=== PATIENT | male | born 1950 | race American Indian/Alaskan Native ===

== ENCOUNTER 2017-07-10 16:53 | Emergency (ER) | payer MEDICARE, MEDICAID ==
--- NOTE | 2017-07-10 18:14 | Emergency Department Report ---
ED General Adult HPI - General Chief complaint: Medical Clearance Stated complaint: AMS Time Seen by Provider: 07/10/17 18:01 Source: patient, EMS Mode of arrival: Stretcher Limitations: No Limitations - History of Present Illness Initial comments: Patient is a 67-year-old male past medical history of malignant neoplasm of brain who presents with altered mental status. Patient was sent by his senior living due to having altered mental status. 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 Severity scale (0 -10): 0 - Related Data Allergies Allergy/AdvReac Type Severity Reaction Status Date / Time No Known Allergies Allergy Unverified 07/10/17 17:38 ED Review of Systems ROS: Stated complaint: AMS Other details as noted in HPI Comment: Unobtainable due to pts medical conditions ED Physical Exam - General Limitations: No Limitations General appearance: obtunded - Head Head exam: Present: atraumatic, normocephalic - Eye Eye exam: Present: normal appearance - ENT ENT exam: Present: mucous membranes moist - Neck Neck exam: Present: normal inspection - Respiratory Respiratory exam: Present: normal lung sounds bilaterally. Absent: respiratory distress - Cardiovascular Cardiovascular Exam: Absent: systolic murmur, diastolic murmur, rubs, gallop - GI/Abdominal GI/Abdominal exam: Present: soft, normal bowel sounds - Rectal Rectal exam: Present: deferred - Extremities Exam Extremities exam: Present: normal inspection - Back Exam Back exam: Present: normal inspection - Neurological Exam Neurological exam: Present: altered - Psychiatric Psychiatric exam: Present: other (confused) - Skin Skin exam: Present: warm, dry, intact, normal color. Absent: rash ED Course Vital Signs 07/10/17 07/10/17 17:29 17:30 Temperature 98.3 F Pulse Rate 96 H Respiratory 22 22 Rate Blood Pressure 159/72 [Left] O2 Sat by Pulse 100 100 Oximetry - Consultations Consultation #1: 07/10/17 19:[address] Ludwig neuro buttermaker continuous churn critical care. Patient will be an ER to ER transfer he will be transferred by ground due to his brain tumor. Patient is too confused and has no family members patient will be transferred for for continuing medical care. ED Medical Decision Making - Lab Data Result diagrams: 07/10/17 17:58 07/10/17 17:58 Lab Results 10/26/17 10/26/17 Range/Units 17:58 17:58 WBC 11.7 H (4.5-11.0) K/mm3 RBC 5.44 H (3.65-5.03) M/mm3 Hgb 15.7 H (11.8-15.2) gm/dl Hct 49.7 H (35.5-45.6) % MCV 91 (84-94) fl MCH 29 (28-32) pg MCHC 32 (32-34) % RDW 13.7 (13.2-15.2) % Plt Count 313 (140-440) K/mm3 Lymph % (Auto) 21.8 (13.4-35.0) % [place] % (Auto) 5.0 (0.0-7.3) % Eos % (Auto) 0.1 (0.0-4.3) % Baso % (Auto) 0.1 (0.0-1.8) % Lymph # 2.5 (1.2-5.4) K/mm3 [place] # 0.6 (0.0-0.8) K/mm3 Eos # 0.0 (0.0-0.4) K/mm3 Baso # 0.0 (0.0-0.1) K/mm3 Seg Neutrophils % 73.0 H (40.0-70.0) % Seg Neutrophils # 8.5 H (1.8-7.7) K/mm3 Sodium 140 (137-145) mmol/L Potassium 5.2 H (3.6-5.0) mmol/L Chloride 102.2 (98-107) mmol/L Carbon Dioxide 22 (22-30) mmol/L Anion Gap 21 mmol/L BUN 9 (9-20) mg/dL Creatinine 0.7 L (0.8-1.5) mg/dL Estimated GFR > 60 ml/min BUN/Creatinine Ratio 13 % Glucose 159 H (75-100) mg/dL Calcium 11.2 H (8.4-10.2) mg/dL Magnesium 2.20 (1.7-2.3) mg/dL Total Bilirubin 0.30 (0.1-1.2) mg/dL AST 77 H (5-40) units/L ALT 118 H (7-56) units/L Alkaline Phosphatase 96 (35-129) units/L Total Protein 7.8 (6.3-8.2) g/dL Albumin 4.2 (3.9-5) g/dL Albumin/Globulin Ratio 1.2 % - Radiology Data Radiology results: report reviewed, image reviewed CT head: Shows brain mass and frontal lobe previous surgery performed on this area mild mass effect and no intracranial bleed is seen. - Medical Decision Making Chief medical diagnosis: Brain tumor Differential medical diagnosis: Subdural hematoma, metabolic abnormality I will get CBC, CMP, EKG, CT head, ua and IV saline lock CT head is concerning for frontal brain tumor patient will need to be transferred for higher level of care. Discussed with neurosurgeon at [facility] patient will be an ER to ER transfer pertinent neuro critical care DrGali Ludwig. Discussed with patient the patient is currently confused. I will arrange for transfer due to his life-threatening tumor. Critical Care Time: Yes (35) Critical care time in (mins) excluding proc time.: 35 Critical care attestation.: If time is entered above; I have spent that time in minutes in the direct care of this critically ill patient, excluding procedure time. Critical care time spent a patient's bed side 5 minutes critical care time spent reviewing old records 15 minutes Critical care time spent reviewing imaging and laboratory findings 10 minutes Critical care time spent discussing with consultants 10 minutes Critical care time spent with patient's family 0 minutes ED Disposition Clinical Impression: Encephalopathy, Brain tumor Disposition: [id number]/TX-70 ANOTHER TYPE HLTHCARE Is pt being admited?: No Does the pt Need Aspirin: No Condition: Stable Referrals: PRIMARY CARE, [Primary Care Provider] - 3-5 Days
[2017-07-10 18:18] LABS: Basophils % (Auto) 0.1 % (0.0-1.8); Eosinophils % (Auto) 0.1 % (0.0-4.3); Hematocrit 49.7 % (35.5-45.6); Hemoglobin 15.7 gm/dl (11.8-15.2); Mean Corpuscular HGB Conc 32 % (32-34); Mean Corpuscular Hemoglobin 29 pg (28-32); Mean Corpuscular Volume 91 fl (84-94); Platelet Count 313 K/mm3 (140-440); Red Blood Count 5.44 M/mm3 (3.65-5.03); Red Cell Distribution Width 13.7 % (13.2-15.2); White Blood Count 11.7 K/mm3 (4.5-11.0)
[2017-07-10 18:35] LABS: Alanine Aminotransferase 118 units/L (7-56); Albumin 4.2 g/dL (3.9-5); Albumin/Globulin Ratio 1.2 %; Alkaline Phosphatase 96 units/L (35-129); Anion Gap 21 mmol/L; BUN/Creatinine Ratio 13; Blood Urea Nitrogen 9 mg/dL (9-20); Calcium 11.2 mg/dL (8.4-10.2); Carbon Dioxide 22 mmol/L (22-30); Chloride 102.2 mmol/L (98-107); Glucose 159 mg/dL (75-100); Potassium 5.2 mmol/L (3.6-5.0); Sodium 140 mmol/L (137-145); Total Protein 7.8 g/dL (6.3-8.2)
--- NOTE | 2017-07-10 18:47 | Cat Scan Report ---
FINAL REPORT PROCEDURE: CT HEAD/BRAIN WO CON TECHNIQUE: Computerized tomography of the head was performed without contrast material. HISTORY: AMS COMPARISON: No prior studies are available for comparison. FINDINGS: Patient has had prior frontal craniotomy. Visualized portions of paranasal sinuses and mastoid air cells are clear. There is likely an infiltrating mass in the right frontal lobe that may cross the midline, via the corpus callosum, into the left frontal lobe. Mild encephalomalacia is seen in the right frontal lobe, also. Areas of vasogenic edema and/or gliosis are likely present. Cerebral ventricles are normal in size. No midline shift is seen. No acute intracranial hemorrhage is seen. IMPRESSION: Probable space-occupying mass is identified in the right frontal lobe and extending into the left frontal lobe. GBM or other glial cell tumor could cause this appearance. Little mass effect is seen. Correlation with MRI may be useful. There is evidence of prior surgery in this region, also.
[2017-07-10 21:56] VITALS: BP 148/69
== END 2017-07-10 20:40 | disposition other institution (70) ==
LOC: ED 16:53
DX: G93.40 Encephalopathy, unspecified (principal); C71.9 Malignant neoplasm of brain, unspecified
CPT/HCPCS: 36415; 70450; 80053; 82140; 83735; 85025

== ENCOUNTER 2017-09-10 05:00 | Inpatient (IN) | payer MEDICARE, MEDICAID ==
[2017-09-10] MEDS ORDERED: TYLENOL PR ONE (05:04)
[2017-09-10] MEDS ORDERED: NACL 0.9% 500 ML 500 ML IV ONE (05:11)
[2017-09-10] MEDS ORDERED: VANCOMYCIN VIAL IV ONE (05:16)
[2017-09-10] MEDS ORDERED: NACL 0.9% 1000 ML 2,000 ML IV ONE (05:16)
--- NOTE | 2017-09-10 05:26 | Event Note ---
Date: 09/10/17 Patient presents with acute febrile illness and delirium. Has DO NOT RESUSCITATE, DO NOT INTUBATE from 2015. Also has history of malignant brain neoplasm, history is otherwise limited. Patient will be started empirically on a sepsis pathway. Patient will be treated empirically with IV fluids, vancomycin. Enclosed paperwork indicates allergy to acetaminophen, aspirin, but does not further specify. Laboratory studies, antibiotics, blood cultures all pending, x-ray of the chest is pending. Right-sided external jugular 18-gauge IV placed by myself with 1 attempt with no difficulty.
[2017-09-10] MEDS ORDERED: VANCOMYCIN 2,000 MG in NACL 0.9% 500 ML 500 ML IV ONE (05:30)
[2017-09-10 05:34] LABS: Hematocrit 44.1 % (35.5-45.6); Mean Corpuscular HGB Conc 34 % (32-34); Mean Corpuscular Hemoglobin 30 pg (28-32); Mean Corpuscular Volume 89 fl (84-94); Platelet Count 173 K/mm3 (140-440); Red Blood Count 4.98 M/mm3 (3.65-5.03); Red Cell Distribution Width 13.8 % (13.2-15.2)
[2017-09-10 05:52] LABS: INR 1.12 (0.87-1.13)
[2017-09-10 05:55] LABS: Alanine Aminotransferase 49 units/L (7-56); Albumin 3.8 g/dL (3.9-5); BUN/Creatinine Ratio 8; Blood Urea Nitrogen 9 mg/dL (9-20); Calcium 10.5 mg/dL (8.4-10.2); Hemolysis Index 14
[2017-09-10 05:58] LABS: Bacteria,Urine 1+ /HPF (Negative); Bilirubin,Urine NEG (Negative); Blood,Urine NEG (Negative); Color,Urine Yellow (Yellow); Mucus,Urine FEW /HPF; Nitrite,Urine NEG (Negative)
[2017-09-10] MEDS ORDERED: VANCOMYCIN PHARMACY TO DOSE IV SCH (06:00)
--- NOTE | 2017-09-10 06:03 | XRay Report ---
FINAL REPORT PROCEDURE: XR CHEST 1V AP TECHNIQUE: Chest radiograph anteroposterior view. CPT 18171 HISTORY: resp distress COMPARISON: No prior studies are available for comparison. FINDINGS: Heart: Normal. Mediastinum/Vessels: Normal. Lungs/Pleural space: Lungs are clear and expanded. There are no infiltrates, effusions or pneumothoraces.. Bony thorax: No acute osseous abnormality. There is scoliosis with convexity to the right. Life support devices: None. IMPRESSION: No acute cardiopulmonary abnormality.
--- NOTE | 2017-09-10 06:52 | Emergency Department Report ---
ED Fever HPI - General Chief Complaint: Altered Mental Status Stated Complaint: AMS Time Seen by Provider: 09/10/17 05:15 Source: detention records Exam Limitations: clinical condition - History of Present Illness Initial Comments: 67-year-old male with a past medical history of asthma, dementia, GERD, hypertension, and malignant neoplasm of the brain presents to the hospital with altered mental status and fever for [facility] home. Symptoms started at 10 PM last night. Patient denies any pain currently. Arouses to voice but falls asleep quickly. Oriented to self at this time. 2015 DO NOT RESUSCITATE order on chart. Patient had a right IJ place, normal saline, and vancomycin initiated in the ED for probable bilateral leg cellulitis. ED Review of Systems ROS: Stated complaint: AMS Other details as noted in HPI Comment: Unobtainable due to pts medical conditions (demented, lethargic) ED Past Medical Hx - Past Medical History Previous Medical History?: Yes Hx Hypertension: Yes Hx GERD: Yes Hx Asthma: Yes Hx Dementia: Yes Additional medical history: malignant neoplasm of brain ED Physical Exam - General Limitations: Altered Mental Status - Other Other exam information: General: Arousable but lethargic Head exam: Atraumatic, normocephalic Eyes exam: Normal appearance ENT: Moist mucous membrane Neck exam: Normal inspection, no meningismus Respiratory exam: Clear to auscultation bilateral, no wheezes, rales, crackles. 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 ED Course Vital Signs 09/10/17 09/10/17 09/10/17 05:04 05:18 05:31 Temperature 104.9 F H Pulse Rate 114 H Respiratory 32 H 32 H Rate Blood Pressure 164/83 O2 Sat by Pulse 94 94 Oximetry ED Medical Decision Making - Lab Data Result diagrams: 09/10/17 05:24 09/10/17 05:24 Lab Results 09/10/17 09/10/17 09/10/17 Range/Units 05:24 05:24 05:24 WBC 10.1 (4.5-11.0) K/mm3 RBC 4.98 (3.65-5.03) M/mm3 Hgb 15.0 (11.8-15.2) gm/dl Hct 44.1 (35.5-45.6) % MCV 89 (84-94) fl MCH 30 (28-32) pg MCHC 34 (32-34) % RDW 13.8 (13.2-15.2) % Plt Count 173 (140-440) K/mm3 [place] % (Auto) City [employer] PT 15.0 H (12.2-14.9) Sec. INR 1.12 (0.87-1.13) VBG pH (7.320-7.420) Sodium 142 (137-145) mmol/L Potassium 4.4 (3.6-5.0) mmol/L Chloride 101.2 (98-107) mmol/L Carbon Dioxide 23 (22-30) mmol/L Anion Gap 22 mmol/L BUN 9 (9-20) mg/dL Creatinine 1.1 (0.8-1.5) mg/dL Estimated GFR > 60 ml/min BUN/Creatinine Ratio 8 % Glucose 111 H (75-100) mg/dL Lactic Acid (0.7-2.0) mmol/L Calcium 10.5 H (8.4-10.2) mg/dL Total Bilirubin 0.30 (0.1-1.2) mg/dL AST 49 H (5-40) units/L ALT 49 (7-56) units/L Alkaline Phosphatase 89 (35-129) units/L Total Protein 7.1 (6.3-8.2) g/dL Albumin 3.8 L (3.9-5) g/dL Albumin/Globulin Ratio 1.2 % Urine Color (Yellow) Urine Turbidity (Clear) Urine pH (5.0-7.0) Ur Specific [place] (1.003-1.030) Urine Protein (Negative) mg/dL Urine Glucose (UA) (Negative) mg/dL Urine Ketones (Negative) mg/dL Urine Blood (Negative) Urine Nitrite (Negative) Urine Bilirubin (Negative) Urine Urobilinogen (<2.0) mg/dL Ur Leukocyte Esterase (Negative) Urine WBC (Auto) (0.0-6.0) /HPF Urine RBC (Auto) (0.0-6.0) /HPF Urine Bacteria (Auto) (Negative) /HPF Urine Mucus /HPF 09/10/17 09/10/17 09/10/17 Range/Units 05:24 05:24 05:28 WBC (4.5-11.0) K/mm3 RBC (3.65-5.03) M/mm3 Hgb (11.8-15.2) gm/dl Hct (35.5-45.6) % MCV (84-94) fl MCH (28-32) pg MCHC (32-34) % RDW (13.2-15.2) % Plt Count (140-440) K/mm3 [place] % (Auto) PT (12.2-14.9) Sec. INR (0.87-1.13) VBG pH 7.355 (7.320-7.420) Sodium (137-145) mmol/L Potassium (3.6-5.0) mmol/L Chloride (98-107) mmol/L Carbon Dioxide (22-30) mmol/L Anion Gap mmol/L BUN (9-20) mg/dL Creatinine (0.8-1.5) mg/dL Estimated GFR ml/min BUN/Creatinine Ratio % Glucose (75-100) mg/dL Lactic Acid 2.10 H* (0.7-2.0) mmol/L Calcium (8.4-10.2) mg/dL Total Bilirubin (0.1-1.2) mg/dL AST (5-40) units/L ALT (7-56) units/L Alkaline Phosphatase (35-129) units/L Total Protein (6.3-8.2) g/dL Albumin (3.9-5) g/dL Albumin/Globulin Ratio % Urine Color Yellow (Yellow) Urine Turbidity Clear (Clear) Urine pH 5.0 (5.0-7.0) Ur Specific [place] 1.021 (1.003-1.030) Urine Protein 30 mg/dl (Negative) mg/dL Urine Glucose (UA) Neg (Negative) mg/dL Urine Ketones 20 (Negative) mg/dL Urine Blood Neg (Negative) Urine Nitrite Neg (Negative) Urine Bilirubin Neg (Negative) Urine Urobilinogen 2.0 (<2.0) mg/dL Ur Leukocyte Esterase Neg (Negative) Urine WBC (Auto) 1.0 (0.0-6.0) /HPF Urine RBC (Auto) 2.0 (0.0-6.0) /HPF Urine Bacteria (Auto) 1+ (Negative) /HPF Urine Mucus Few /HPF - EKG Data -: EKG Interpreted by Mo EKG shows normal: sinus rhythm, axis (74), QRS complexes (85), ST-T waves (lat t inv) Rate: tachycardia (108) - EKG Data When compared to previous EKG there are: previous EKG unavailable - Radiology Data Radiology results: report reviewed (chest x-ray: No acute findings read by radiologist) read by radiologist ct head: no signficant change in the frontal lobe edema and assumed underlying mass since 07/10/2017. - Medical Decision Making Plan to admit this to the hospital for sepsis treatment. IV fluids and vancomycin initiated in the ED. Patient has a 2015 DO NOT RESUSCITATE on the chart. Hospitalist informed. No signs of septic shock at this time - Differential Diagnosis cellulitis, sepsis, UTI, pneumonia Critical Care Time: No Critical care attestation.: If time is entered above; I have spent that time in minutes in the direct care of this critically ill patient, excluding procedure time. ED Disposition Clinical Impression: Sepsis, Bilateral cellulitis of lower leg, Dementia, Brain neoplasm, HTN ( hypertension) Disposition: -09 OP ADMIT IP TO THIS HOSP Is pt being admited?: Yes Condition: Stable Time of Disposition: 06:53 (Hospitalist/sabinoet)
--- NOTE | 2017-09-10 07:56 | Cat Scan Report ---
CT HEAD WITHOUT CONTRAST: HISTORY: Fever, altered mental status, history of brain tumor. TECHNIQUE: Sequential 2.5mm CT images. COMPARISON: 07/10/17. FINDINGS: There is a large area of edema in the anterior right frontal lobe and medial left frontal lobe measuring up to 6.6 x 5.7 cm in axial dimensions. There is evidence for previous frontal craniotomy changes and encephalomalacia in both frontal lobes most consistent with surgical changes. There is mild mass effect on the anterior corpus callosum and right to left midline shift measuring proximally 5 mm at the level of the frontal horns. All these findings are unchanged. There is no evidence for hemorrhage, new area of edema in or large area of acute ischemia on noncontrast CT. The remaining brain parenchyma is within normal limits for this patient's age. Ventricular size is stable and within normal limits. IMPRESSION: No significant change in the frontal lobe edema and assumed underlying mass since 06/2617. Please see above. If further evaluation is needed, MR brain with contrast is recommended.
[2017-09-10 08:04] LABS: Band Neutrophils # (Manual) 0.3 K/mm3; Basophils % (Manual) 0 % (0.0-1.8); Monocytes % (Manual) 15 % (0.0-7.3); Total Cells Counted 100
[2017-09-10 08:05] LABS: Anisocytosis Few
[2017-09-10] MEDS ORDERED: TYLENOL PO PRN (08:18)
[2017-09-10] MEDS ORDERED: MORPHINE IV PRN (08:18)
[2017-09-10] MEDS ORDERED: ULTRAM PO PRN (08:27)
--- NOTE | 2017-09-10 08:29 | History and Physical Report ---
<ROXANNE RINCON - Last Filed: 09/10/17 14:42> History of Present Illness Date of examination: 09/10/17 Date of admission: 09/10/2017 Chief complaint: Fever History of present illness: Patient is a 67 years old male with a past medical history of asthma, dementia , GERD, hypertension, and malignant neoplasm of the brain presents to the hospital with altered mental status and fever for [facility]. Patient Altered mental status therefore unable to obtain detail history. Per ER physician and charts patient symptoms started at 10 PM last night. No reports of shortness of breath, chest pain, seizure, trauma, loss of bowel or bladder continence or recent ill contacts. Patient has DNR ordered on chart since 2014. Past History Past Medical History: GERD, hypertension ( ), other (malignant neoplasm of the brain and dementia.) Past Surgical History: Other (unable to obtain due to patients mental status ) Social history: denies: smoking Family history: other (unable to obtain due to patients mental status ) Medications and Allergies Allergies Allergy/AdvReac Type Severity Reaction Status Date / Time acetaminophen [From Tylenol] Allergy Unknown Verified 09/10/17 05:27 aspirin Allergy Unknown Verified 09/10/17 05:27 mannitol [From Zometa] Allergy Unknown Verified 09/10/17 05:27 propoxyphene Allergy Unknown Verified 09/10/17 05:27 water for injection,sterile Allergy Unknown Verified 09/10/17 05:27 [From Zometa] zoledronic acid [From Zometa] Allergy Unknown Verified 09/10/17 05:27 Home Medications Medication Instructions Recorded Confirmed Last Taken Type Albuterol Sulfate [Albuterol 0.63% 0.63 mg IH Q4H PRN 09/10/17 09/10/17 Unknown History NEBS] Ascorbic Acid [Vitamin C with Heather 500 mg PO DAILY 09/10/17 09/10/17 Unknown History Hips] Beclomethasone Dipropionate [Qvar] 2 puff IH BID 09/10/17 09/10/17 Unknown History Dexamethasone [Decadron] 4 mg PO QDAY 09/10/17 09/10/17 Unknown History Docusate Sodium [Colace] 200 mg PO BID PRN 09/10/17 09/10/17 Unknown History Ibuprofen [Motrin] 600 mg PO Q8H PRN 09/10/17 09/10/17 Unknown History Ipratropium/Albuterol Sulfate 1 neb IH Q4HR PRN 09/10/17 09/10/17 Unknown History [DUONEB *Not for PRN Use*] Linagliptin [Tradjenta] 5 mg PO QDAY 09/10/17 09/10/17 Unknown History Mag Hydrox/Aluminum Hyd/Simeth 30 ml PO Q4H PRN 09/10/17 09/10/17 Unknown History [Alum-Mag Hydroxide-Simeth Liq] Magnesium Hydroxide [Milk of 30 ml PO Q12H PRN 09/10/17 09/10/17 Unknown History Magnesia] Montelukast [Singulair] 10 mg PO DAILY 09/10/17 09/10/17 Unknown History Omeprazole 20 mg PO QDAY 09/10/17 09/10/17 Unknown History Polyethylene Glycol 1450 17 gm PO DAILY PRN 09/10/17 09/10/17 Unknown History Sennosides/Docusate [Senokot S] 2 tab PO BID PRN 09/10/17 09/10/17 Unknown History Tamsulosin [Flomax] 0.4 mg PO HS 09/10/17 09/10/17 Unknown History Thiamine [Vitamin B-1] 100 mg PO QDAY 09/10/17 09/10/17 Unknown History Zolpidem [Ambien] 5 mg PO QHS PRN 09/10/17 09/10/17 Unknown History guaiFENesin [Guaifenesin] 30 ml PO Q4H PRN 09/10/17 09/10/17 Unknown History levETIRAcetam [Levetiracetam] 500 mg PO BID 09/10/17 09/10/17 Unknown History Active Meds: Active Medications Bisacodyl (Dulcolax) 10 mg TX QDAY PRN PRN Reason: Constipation unrelieved by MOM Enoxaparin Sodium (Lovenox) 40 mg SUB-Q QDAY RUCHI Sodium Chloride (Nacl 0.9% 1000 Ml) 1,000 mls @ 100 mls/hr IV DIRECT RUCHI Morphine Sulfate (Morphine) 2 mg IV Q4H PRN PRN Reason: Pain, Moderate (4-6) Tramadol HCl (Ultram) 50 mg PO Q4H PRN PRN Reason: Fever Vancomycin HCl (Vancomycin Pharmacy To Dose) 1 each IV PKCONSULT RUCHI PRN Reason: Protocol Review of Systems ROS unobtainable: due to mental status (unable to obtain due to patients mental status ) Exam - Constitutional Vitals: Temp Pulse Resp BP Pulse Ox 104.5 F H 109 H 26 H 120/46 94 09/10/17 07:15 09/10/17 08:00 09/10/17 08:00 09/10/17 08:00 09/10/17 08:00 General appearance: Present: no acute distress, other (Altered mental status ) - EENT Eyes: Present: PERRL ENT: hearing intact - Neck Neck: Present: supple - Respiratory Respiratory effort: normal Respiratory: bilateral: CTA - Cardiovascular Rhythm: regular Heart Sounds: Present: S1 & S2 - Extremities Extremity abnormal: other (Bilateral lower leg erythema and warmth) - Abdominal General gastrointestinal: Present: soft, non-tender Male genitourinary: Present: deferred - Rectal Rectal Exam: deferred - Integumentary Integumentary: Present: clear (Bilateral lower leg erythema and warmth), warm, dry - Musculoskeletal Musculoskeletal: strength equal bilaterally - Psychiatric Psychiatric: other (Impaired judgment ) - Neurologic Neurologic: CNII-XII intact - Allied Health Allied health notes reviewed: nursing Results - Labs CBC & Chem 7: 09/10/17 05:24 09/10/17 05:24 Labs: Laboratory Last Values WBC 10.1 K/mm3 (4.5-11.0) 09/10/17 05:24 RBC 4.98 M/mm3 (3.65-5.03) 09/10/17 05:24 Hgb 15.0 gm/dl (11.8-15.2) 09/10/17 05:24 Hct 44.1 % (35.5-45.6) 09/10/17 05:24 MCV 89 fl (84-94) 09/10/17 05:24 MCH 30 pg (28-32) 09/10/17 05:24 MCHC 34 % (32-34) 09/10/17 05:24 RDW 13.8 % (13.2-15.2) 09/10/17 05:24 Plt Count 173 K/mm3 (140-440) 09/10/17 05:24 [place] % (Auto) Cask Maker 09/10/17 05:24 Add Manual Diff Complete 12/27/17 05:24 Total Counted 100 09/10/17 05:24 Seg Neuts % (Manual) 66 % (40.0-70.0) 09/10/17 05:24 Band Neutrophils % 3.0 % 09/10/17 05:24 Lymphocytes % (Manual) 15.0 % (13.4-35.0) 09/10/17 05:24 Reactive Lymphs % (Man) 0 % 09/10/17 05:24 Monocytes % (Manual) 15 % (0.0-7.3) H 09/10/17 05:24 Eosinophils % (Manual) 1.0 % (0.0-4.3) 09/10/17 05:24 Basophils % (Manual) 0 % (0.0-1.8) 09/10/17 05:24 Metamyelocytes % 0 % 09/10/17 05:24 Myelocytes % 0 % 09/10/17 05:24 Promyelocytes % 0 % 09/10/17 05:24 Blast Cells % 0 % 09/10/17 05:24 Nucleated RBC % Not Reportable 09/10/17 05:24 Seg Neutrophils # Man 6.6 K/mm3 (1.8-7.7) 09/10/17 05:24 Band Neutrophils # 0.3 K/mm3 09/10/17 05:24 Lymphocytes # (Manual) 1.5 K/mm3 (1.2-5.4) 09/10/17 05:24 Abs React Lymphs (Man) 0.0 K/mm3 09/10/17 05:24 Monocytes # (Manual) 1.5 K/mm3 (0.0-0.8) H 09/10/17 05:24 Eosinophils # (Manual) 0.1 K/mm3 (0.0-0.4) 09/10/17 05:24 Basophils # (Manual) 0.0 K/mm3 (0.0-0.1) 09/10/17 05:24 Metamyelocytes # 0.0 K/mm3 09/10/17 05:24 Myelocytes # 0.0 K/mm3 09/10/17 05:24 Promyelocytes # 0.0 K/mm3 09/10/17 05:24 Blast Cells # 0.0 K/mm3 09/10/17 05:24 WBC Morphology Not Reportable 09/10/17 05:24 Hypersegmented Neuts Not Reportable 09/10/17 05:24 Hyposegmented Neuts Not Reportable 09/10/17 05:24 Hypogranular Neuts Not Reportable 09/10/17 05:24 Smudge Cells Not Reportable 09/10/17 05:24 Toxic Granulation Not Reportable 09/10/17 05:24 Toxic Vacuolation Not Reportable 09/10/17 05:24 Dohle Bodies Not Reportable 09/10/17 05:24 Pelger-Huet Anomaly Not Reportable 09/10/17 05:24 Dev Rods Not Reportable 09/10/17 05:24 Platelet Estimate Not Reportable 09/10/17 05:24 Clumped Platelets Not Reportable 09/10/17 05:24 Plt Clumps, EDTA Not Reportable 09/10/17 05:24 Large Platelets Not Reportable 09/10/17 05:24 Giant Platelets Not Reportable 09/10/17 05:24 Platelet Satelliting Not Reportable 09/10/17 05:24 Plt Morphology Comment Not Reportable 09/10/17 05:24 RBC Morphology Not Reportable 09/10/17 05:24 Dimorphic RBCs Not Reportable 09/10/17 05:24 Polychromasia Not Reportable 09/10/17 05:24 Hypochromasia Not Reportable 09/10/17 05:24 Poikilocytosis Not Reportable 09/10/17 05:24 Anisocytosis Few 09/10/17 05:24 Microcytosis Not Reportable 09/10/17 05:24 Macrocytosis Not Reportable 09/10/17 05:24 Spherocytes Not Reportable 09/10/17 05:24 Pappenheimer Bodies Not Reportable 09/10/17 05:24 Sickle Cells Not Reportable 09/10/17 05:24 Target Cells Not Reportable 09/10/17 05:24 Tear Drop Cells Not Reportable 09/10/17 05:24 Ovalocytes Not Reportable 09/10/17 05:24 Helmet Cells Not Reportable 09/10/17 05:24 [place] Bodies Not Reportable 09/10/17 05:24 [place] Rings Not Reportable 09/10/17 05:24 Fox Cells Not Reportable 09/10/17 05:24 Bite Cells Not Reportable 09/10/17 05:24 Crenated Cell Not Reportable 09/10/17 05:24 Elliptocytes Not Reportable 09/10/17 05:24 Acanthocytes (Spur) Not Reportable 09/10/17 05:24 Rouleaux Not Reportable 09/10/17 05:24 Hemoglobin C Crystals Not Reportable 09/10/17 05:24 Schistocytes Not Reportable 09/10/17 05:24 Malaria parasites Not Reportable 09/10/17 05:24 Max Bodies Not Reportable 09/10/17 05:24 Hem Pathologist Commnt No 09/10/17 05:24 PT 15.0 Sec. (12.2-14.9) H 09/10/17 05:24 INR 1.12 (0.87-1.13) 09/10/17 05:24 VBG pH 7.355 (7.320-7.420) 09/10/17 05:24 Sodium 142 mmol/L (137-145) 09/10/17 05:24 Potassium 4.4 mmol/L (3.6-5.0) 09/10/17 05:24 Chloride 101.2 mmol/L (98-107) 09/10/17 05:24 Carbon Dioxide 23 mmol/L (22-30) 09/10/17 05:24 Anion Gap 22 mmol/L 09/10/17 05:24 BUN 9 mg/dL (9-20) 09/10/17 05:24 Creatinine 1.1 mg/dL (0.8-1.5) 09/10/17 05:24 Estimated GFR > 60 ml/min 09/10/17 05:24 BUN/Creatinine Ratio 8 % 09/10/17 05:24 Glucose 111 mg/dL (75-100) H 09/10/17 05:24 Lactic Acid 2.10 mmol/L (0.7-2.0) H* 09/10/17 05:24 Calcium 10.5 mg/dL (8.4-10.2) H 09/10/17 05:24 Total Bilirubin 0.30 mg/dL (0.1-1.2) 09/10/17 05:24 AST 49 units/L (5-40) H 09/10/17 05:24 ALT 49 units/L (7-56) 09/10/17 05:24 Alkaline Phosphatase 89 units/L (35-129) 09/10/17 05:24 Total Protein 7.1 g/dL (6.3-8.2) 09/10/17 05:24 Albumin 3.8 g/dL (3.9-5) L 09/10/17 05:24 Albumin/Globulin Ratio 1.2 % 09/10/17 05:24 Urine Color Yellow (Yellow) 09/10/17 05:28 Urine Turbidity Clear (Clear) 09/10/17 05:28 Urine pH 5.0 (5.0-7.0) 09/10/17 05:28 Ur Specific [place] 1.021 (1.003-1.030) 09/10/17 05:28 Urine Protein 30 mg/dl mg/dL (Negative) 09/10/17 05:28 Urine Glucose (UA) Neg mg/dL (Negative) 09/10/17 05:28 Urine Ketones 20 mg/dL (Negative) 09/10/17 05:28 Urine Blood Neg (Negative) 09/10/17 05:28 Urine Nitrite Neg (Negative) 09/10/17 05:28 Urine Bilirubin Neg (Negative) 09/10/17 05:28 Urine Urobilinogen 2.0 mg/dL (<2.0) 09/10/17 05:28 Ur Leukocyte Esterase Neg (Negative) 09/10/17 05:28 Urine WBC (Auto) 1.0 /HPF (0.0-6.0) 09/10/17 05:28 Urine RBC (Auto) 2.0 /HPF (0.0-6.0) 09/10/17 05:28 Urine Bacteria (Auto) 1+ /HPF (Negative) 09/10/17 05:28 Urine Mucus Few /HPF 09/10/17 05:28 - Imaging and Cardiology Chest x-ray: image reviewed (Unremarkable ) Assessment and Plan Assessment and plan: Patient is a 67 years old male with a past medical history of asthma, dementia, GERD, hypertension, and malignant neoplasm of the brain presents to the hospital with altered mental status and fever for [facility]. Sepsis Blood cultures collected prior to antibiotic Follow blood cultures Aggressive fluid fluid resuscitation Initiated with IV vancomycin and Zosyn Bilateral lower extremity cellulitis Bilateral lower leg erythema and warmth Started IV vancomycin and Zosyn ID consult Lactic acidosis Resolved Secondary to sepsis Tobacco abuse Smoking cessation counseling done. Patient strongly advised to quit. Malignant neoplasm of the brain Patient is on hospice Malnutrition Nutrition consulted DVT prophylaxis Lovenox Patient is DNR Advance Directives: Yes VTE prophylaxis?: Chemical Contraindication Mechanical VTE Prophylaxis: Treatment Not Indicated Plan of care discussed with patient/family: Yes <ALEXANDR RIDER R - Last Filed: 09/10/17 15:17> History of Present Illness Date of admission: 09/10/17 08:18 Medications and Allergies Active Meds: Active Medications Acetaminophen (Tylenol) 650 mg TX Q6H PRN PRN Reason: Pain, Mild (1-3) Last Admin: 09/10/17 14:58 Dose: 650 mg Al Hydrox/Mg Hydrox/Simethicone (Alum-Mag Hydrox-Simeth [id number]/5ml) 30 ml PO Q4H PRN PRN Reason: Indigestion Albuterol (Proventil) 2.5 mg IH Q4HRT PRN PRN Reason: Shortness Of Breath Ascorbic Acid (Vitamin C) 500 mg PO DAILY RUCHI Bisacodyl (Dulcolax) 10 mg TX QDAY PRN PRN Reason: Constipation unrelieved by MOM Dexamethasone (Decadron) 4 mg PO QDAY RUCHI Docusate Sodium (Colace) 200 mg PO BID PRN PRN Reason: Constipation Enoxaparin Sodium (Lovenox) 40 mg SUB-Q QDAY [facility] Last Admin: 09/10/17 10:58 Dose: 40 mg Guaifenesin (Robitussin) 400 mg PO Q4H PRN PRN Reason: Cough Sodium Chloride (Nacl 0.9% 1000 Ml) 1,000 mls @ 100 mls/hr IV DIRECT RUCHI Piperacillin Sod/Tazobactam Sod (Zosyn/Ns 4.5gm/100ml) 4.5 gm in 100 mls @ 200 mls/hr IV Q6HR RUCHI PRN Reason: Protocol Last Admin: 09/10/17 12:33 Dose: 200 mls/hr Vancomycin HCl 1,250 mg/ (Sodium Chloride) 262.5 mls @ 166.667 mls/hr IV Q12HR RUCHI Ibuprofen (Motrin) 600 mg PO Q8H PRN PRN Reason: Pain Levetiracetam (Keppra) 500 mg PO BID RUCHI Magnesium Hydroxide (Milk Of Magnesia) 30 ml PO Q12H PRN PRN Reason: Constipation Miscellaneous Medication (Beclomethasone Dipropionate [Qvar]) 2 puff IH BID RUCHI Montelukast Sodium (Singulair) 10 mg PO DAILY RUCHI Morphine Sulfate (Morphine) 2 mg IV Q4H PRN PRN Reason: Pain, Moderate (4-6) Pantoprazole Sodium (Protonix) 20 mg PO QDAY RUCHI Polyethylene Glycol (Miralax 3350) 17 gm PO QDAY PRN PRN Reason: Constipation Senna/Docusate Sodium (Senokot S) 2 tab PO BID PRN PRN Reason: Constipation Tamsulosin HCl (Flomax) 0.4 mg PO HS RUCHI Thiamine HCl (Vitamin B-1) 100 mg PO QDAY RUCHI Tramadol HCl (Ultram) 50 mg PO Q4H PRN PRN Reason: Fever Vancomycin HCl (Vancomycin Pharmacy To Dose) 1 each IV PKCONSULT RUCHI PRN Reason: Protocol Zolpidem Tartrate (Ambien) 5 mg PO QHS PRN PRN Reason: Insomnia Exam - Constitutional Vitals: Temp Pulse Resp BP Pulse Ox 103.4 F H 98 H 31 H 98/41 91 09/10/17 10:36 09/10/17 11:16 09/10/17 11:16 09/10/17 11:16 09/10/17 11:16 Results - Labs CBC & Chem 7: 09/10/17 05:24 09/10/17 05:24 Labs: Laboratory Last Values WBC 10.1 K/mm3 (4.5-11.0) 09/10/17 05:24 RBC 4.98 M/mm3 (3.65-5.03) 09/10/17 05:24 Hgb 15.0 gm/dl (11.8-15.2) 09/10/17 05:24 Hct 44.1 % (35.5-45.6) 09/10/17 05:24 MCV 89 fl (84-94) 09/10/17 05:24 MCH 30 pg (28-32) 09/10/17 05:24 MCHC 34 % (32-34) 09/10/17 05:24 RDW 13.8 % (13.2-15.2) 09/10/17 05:24 Plt Count 173 K/mm3 (140-440) 09/10/17 05:24 [place] % (Auto) Cask Maker 09/10/17 05:24 Add Manual Diff Complete 09/10/17 05:24 Total Counted 100 09/10/17 05:24 Seg Neuts % (Manual) 66 % (40.0-70.0) 09/10/17 05:24 Band Neutrophils % 3.0 % 09/10/17 05:24 Lymphocytes % (Manual) 15.0 % (13.4-35.0) 09/10/17 05:24 Reactive Lymphs % (Man) 0 % 09/10/17 05:24 Monocytes % (Manual) 15 % (0.0-7.3) H 09/10/17 05:24 Eosinophils % (Manual) 1.0 % (0.0-4.3) 09/10/17 05:24 Basophils % (Manual) 0 % (0.0-1.8) 09/10/17 05:24 Metamyelocytes % 0 % 09/10/17 05:24 Myelocytes % 0 % 09/10/17 05:24 Promyelocytes % 0 % 09/10/17 05:24 Blast Cells % 0 % 09/10/17 05:24 Nucleated RBC % Not Reportable 09/10/17 05:24 Seg Neutrophils # Man 6.6 K/mm3 (1.8-7.7) 09/10/17 05:24 Band Neutrophils # 0.3 K/mm3 09/10/17 05:24 Lymphocytes # (Manual) 1.5 K/mm3 (1.2-5.4) 09/10/17 05:24 Abs React Lymphs (Man) 0.0 K/mm3 09/10/17 05:24 Monocytes # (Manual) 1.5 K/mm3 (0.0-0.8) H 09/10/17 05:24 Eosinophils # (Manual) 0.1 K/mm3 (0.0-0.4) 09/10/17 05:24 Basophils # (Manual) 0.0 K/mm3 (0.0-0.1) 09/10/17 05:24 Metamyelocytes # 0.0 K/mm3 09/10/17 05:24 Myelocytes # 0.0 K/mm3 09/10/17 05:24 Promyelocytes # 0.0 K/mm3 09/10/17 05:24 Blast Cells # 0.0 K/mm3 09/10/17 05:24 WBC Morphology Not Reportable 09/10/17 05:24 Hypersegmented Neuts Not Reportable 09/10/17 05:24 Hyposegmented Neuts Not Reportable 09/10/17 05:24 Hypogranular Neuts Not Reportable 09/10/17 05:24 Smudge Cells Not Reportable 09/10/17 05:24 Toxic Granulation Not Reportable 09/10/17 05:24 Toxic Vacuolation Not Reportable 09/10/17 05:24 Dohle Bodies Not Reportable 09/10/17 05:24 Pelger-Huet Anomaly Not Reportable 09/10/17 05:24 Dev Rods Not Reportable 09/10/17 05:24 Platelet Estimate Not Reportable 09/10/17 05:24 Clumped Platelets Not Reportable 09/10/17 05:24 Plt Clumps, EDTA Not Reportable 09/10/17 05:24 Large Platelets Not Reportable 09/10/17 05:24 Giant Platelets Not Reportable 09/10/17 05:24 Platelet Satelliting Not Reportable 09/10/17 05:24 Plt Morphology Comment Not Reportable 09/10/17 05:24 RBC Morphology Not Reportable 09/10/17 05:24 Dimorphic RBCs Not Reportable 09/10/17 05:24 Polychromasia Not Reportable 09/10/17 05:24 Hypochromasia Not Reportable 09/10/17 05:24 Poikilocytosis Not Reportable 09/10/17 05:24 Anisocytosis Few 09/10/17 05:24 Microcytosis Not Reportable 09/10/17 05:24 Macrocytosis Not Reportable 09/10/17 05:24 Spherocytes Not Reportable 09/10/17 05:24 Pappenheimer Bodies Not Reportable 09/10/17 05:24 Sickle Cells Not Reportable 09/10/17 05:24 Target Cells Not Reportable 09/10/17 05:24 Tear Drop Cells Not Reportable 09/10/17 05:24 Ovalocytes Not Reportable 09/10/17 05:24 Helmet Cells Not Reportable 09/10/17 05:24 [place] Bodies Not Reportable 09/10/17 05:24 Tolley Rings Not Reportable 09/10/17 05:24 Fox Cells Not Reportable 09/10/17 05:24 Bite Cells Not Reportable 09/10/17 05:24 Crenated Cell Not Reportable 09/10/17 05:24 Elliptocytes Not Reportable 09/10/17 05:24 Acanthocytes (Spur) Not Reportable 09/10/17 05:24 Rouleaux Not Reportable 09/10/17 05:24 Hemoglobin C Crystals Not Reportable 09/10/17 05:24 Schistocytes Not Reportable 09/10/17 05:24 Malaria parasites Not Reportable 09/10/17 05:24 Max Bodies Not Reportable 09/10/17 05:24 Hem Pathologist Commnt No 09/10/17 05:24 PT 15.0 Sec. (12.2-14.9) H 09/10/17 05:24 INR 1.12 (0.87-1.13) 09/10/17 05:24 VBG pH 7.355 (7.320-7.420) 09/10/17 05:24 Sodium 142 mmol/L (137-145) 09/10/17 05:24 Potassium 4.4 mmol/L (3.6-5.0) 09/10/17 05:24 Chloride 101.2 mmol/L (98-107) 09/10/17 05:24 Carbon Dioxide 23 mmol/L (22-30) 09/10/17 05:24 Anion Gap 22 mmol/L 09/10/17 05:24 BUN 9 mg/dL (9-20) 09/10/17 05:24 Creatinine 1.1 mg/dL (0.8-1.5) 09/10/17 05:24 Estimated GFR > 60 ml/min 09/10/17 05:24 BUN/Creatinine Ratio 8 % 09/10/17 05:24 Glucose 111 mg/dL (75-100) H 09/10/17 05:24 Lactic Acid 1.80 mmol/L (0.7-2.0) 09/10/17 08:44 Calcium 10.5 mg/dL (8.4-10.2) H 09/10/17 05:24 Total Bilirubin 0.30 mg/dL (0.1-1.2) 09/10/17 05:24 AST 49 units/L (5-40) H 09/10/17 05:24 ALT 49 units/L (7-56) 09/10/17 05:24 Alkaline Phosphatase 89 units/L (35-129) 09/10/17 05:24 Total Protein 7.1 g/dL (6.3-8.2) 09/10/17 05:24 Albumin 3.8 g/dL (3.9-5) L 09/10/17 05:24 Albumin/Globulin Ratio 1.2 % 09/10/17 05:24 Urine Color Yellow (Yellow) 09/10/17 05:28 Urine Turbidity Clear (Clear) 09/10/17 05:28 Urine pH 5.0 (5.0-7.0) 09/10/17 05:28 Ur Specific [place] 1.021 (1.003-1.030) 09/10/17 05:28 Urine Protein 30 mg/dl mg/dL (Negative) 09/10/17 05:28 Urine Glucose (UA) Neg mg/dL (Negative) 09/10/17 05:28 Urine Ketones 20 mg/dL (Negative) 09/10/17 05:28 Urine Blood Neg (Negative) 09/10/17 05:28 Urine Nitrite Neg (Negative) 09/10/17 05:28 Urine Bilirubin Neg (Negative) 09/10/17 05:28 Urine Urobilinogen 2.0 mg/dL (<2.0) 09/10/17 05:28 Ur Leukocyte Esterase Neg (Negative) 09/10/17 05:28 Urine WBC (Auto) 1.0 /HPF (0.0-6.0) 09/10/17 05:28 Urine RBC (Auto) 2.0 /HPF (0.0-6.0) 09/10/17 05:28 Urine Bacteria (Auto) 1+ /HPF (Negative) 09/10/17 05:28 Urine Mucus Few /HPF 09/10/17 05:28 Assessment and Plan Assessment and plan: I saw and evaluated the patient. I agree with the findings and the plan of care as documented in the Nurse Practitioner's~note, with the following corrections and additions.
[2017-09-10] MEDS ORDERED: DULCOLAX PR PRN (10:00)
[2017-09-10] MEDS ORDERED: LOVENOX SUB-Q ONE (10:56)
[2017-09-10] MEDS: LOVENOX SUB-Q SCH (10:58)
[2017-09-10] MEDS: ZOSYN/NS 4.5GM/100ML 4.5 GM/100 ML VIAL IV SCH ×2 (12:33→18:19)
[2017-09-10] MEDS ORDERED: POLYETHYLENE GLYCOL 17 GM PO PRN (14:38)
[2017-09-10] MEDS ORDERED: AMBIEN PO PRN (14:38)
[2017-09-10] MEDS ORDERED: ALUM-MAG HYDROX-SIMETH 200-200-20MG/5ML PO PRN (14:38)
[2017-09-10] MEDS ORDERED: SENOKOT S PO PRN (14:38)
[2017-09-10] MEDS ORDERED: COLACE PO PRN (14:38)
[2017-09-10] MEDS ORDERED: MILK OF MAGNESIA PO PRN (14:38)
[2017-09-10] MEDS ORDERED: ROBITUSSIN PO PRN (14:38)
[2017-09-10] MEDS ORDERED: DUONEB *Not for PRN Use IH (14:38)
[2017-09-10] MEDS ORDERED: MOTRIN PO PRN (14:38)
[2017-09-10] MEDS ORDERED: MIRALAX 3350 PO PRN (14:57)
[2017-09-10] MEDS: TYLENOL PR PRN (14:58)
[2017-09-10] MEDS ORDERED: PROVENTIL IH PRN (14:58)
[2017-09-10] MEDS: NACL 0.9% 1000 ML 1,000 ML IV SCH (18:38)
[2017-09-10] MEDS ORDERED: BECLOMETHASONE DIPROPIONATE IH SCH (22:00)
[2017-09-10] MEDS: VANCOMYCIN 1,250 MG in NACL 0.9% 250ML 250 ML IV SCH (22:03)
[2017-09-10] MEDS: FLOMAX PO SCH (22:04)
[2017-09-10] MEDS: KEPPRA PO SCH (22:04)
[2017-09-11] MEDS: ZOSYN/NS 4.5GM/100ML 4.5 GM/100 ML VIAL IV SCH ×4 (01:38→18:19)
[2017-09-11 04:42] LABS: Hematocrit 44.4 % (35.5-45.6); Hemoglobin 14.5 gm/dl (11.8-15.2); Mean Corpuscular HGB Conc 33 % (32-34); Mean Corpuscular Hemoglobin 30 pg (28-32); Mean Corpuscular Volume 90 fl (84-94); Platelet Count 158 K/mm3 (140-440); Red Blood Count 4.93 M/mm3 (3.65-5.03); Red Cell Distribution Width 14.8 % (13.2-15.2)
[2017-09-11 04:46] LABS: BUN/Creatinine Ratio 9; Blood Urea Nitrogen 9 mg/dL (9-20); Calcium 9.6 mg/dL (8.4-10.2); Hemolysis Index 45
[2017-09-11 06:01] LABS: Anisocytosis 1+; Band Neutrophils # (Manual) 0.2 K/mm3; Basophils % (Manual) 0 % (0.0-1.8); Eosinophils % (Manual) 0 % (0.0-4.3); Platelet Estimate Consistent w Auto; Total Cells Counted 100
[2017-09-11] MEDS: LOVENOX SUB-Q SCH (09:53)
[2017-09-11] MEDS: VITAMIN C PO SCH (10:00)
[2017-09-11] MEDS ORDERED: NON-FORMULARY (Omeprazole [Omeprazole] 20 MG) PO SCH (10:00)
[2017-09-11] MEDS: VITAMIN B-1 PO SCH (10:00)
[2017-09-11] MEDS: KEPPRA PO SCH (10:00)
[2017-09-11] MEDS: PROTONIX PO SCH (10:00)
[2017-09-11] MEDS: DECADRON PO SCH (10:00)
[2017-09-11] MEDS: SINGULAIR PO SCH (10:00)
[2017-09-11] MEDS: VANCOMYCIN 1,250 MG in NACL 0.9% 250ML 250 ML IV SCH (11:15)
--- NOTE | 2017-09-11 11:18 | Progress Note ---
Assessment and Plan Assessment and plan: Sepsis Blood cultures collected prior to antibiotic Follow blood cultures Aggressive fluid fluid resuscitation Initiated with IV vancomycin and Zosyn Bilateral lower extremity cellulitis Bilateral lower leg erythema and warmth Continue vancomycin and Zosyn ID consult Fever. Etiology may be neuro-mediated secondary to brain neoplasm versus sepsis. Tobacco abuse Smoking cessation counseling done. Patient strongly advised to quit. Malignant neoplasm of the brain Patient is on hospice Malnutrition Nutrition consulted DVT prophylaxis Lovenox Patient is DNR History Interval history: Patient reportedly agitated and confused overnight. Hospitalist Physical - Constitutional Vitals: Temp Pulse Resp BP Pulse Ox 98.9 F 104 H 24 169/88 93 09/11/17 07:47 09/11/17 07:47 09/11/17 08:53 09/11/17 07:47 09/11/17 07:47 General appearance: Present: no acute distress, other (Altered mental status ) - EENT Eyes: Present: PERRL, EOM intact ENT: hearing intact, clear oral mucosa, dentition normal - Neck Neck: Present: supple, normal ROM - Respiratory Respiratory effort: normal Respiratory: bilateral: CTA - Cardiovascular Rhythm: regular Heart Sounds: Present: S1 & S2. Absent: gallop, rub - Extremities Extremities: no ischemia, No edema, Full ROM - Abdominal General gastrointestinal: soft, non-tender, non-distended, normal bowel sounds - Integumentary Integumentary: Present: clear, warm, dry - Neurologic Neurologic: CNII-XII intact, moves all extremities Results - Labs CBC & Chem 7: 09/11/17 03:40 09/11/17 03:40 Labs: Laboratory Last Values WBC 6.4 K/mm3 (4.5-11.0) 09/11/17 03:40 RBC 4.93 M/mm3 (3.65-5.03) 09/11/17 03:40 Hgb 14.5 gm/dl (11.8-15.2) 09/11/17 03:40 Hct 44.4 % (35.5-45.6) 09/11/17 03:40 MCV 90 fl (84-94) 09/11/17 03:40 MCH 30 pg (28-32) 09/11/17 03:40 MCHC 33 % (32-34) 09/11/17 03:40 RDW 14.8 % (13.2-15.2) 09/11/17 03:40 Plt Count 158 K/mm3 (140-440) 09/11/17 03:40 [place] % (Auto) [employer] 09/11/17 03:40 Add Manual Diff Complete 09/11/17 03:40 Total Counted 100 09/11/17 03:40 Seg Neuts % (Manual) 60.0 % (40.0-70.0) 09/11/17 03:40 Band Neutrophils % 3.0 % 09/11/17 03:40 Lymphocytes % (Manual) 20.0 % (13.4-35.0) 09/11/17 03:40 Reactive Lymphs % (Man) 0 % 09/11/17 03:40 Monocytes % (Manual) 17.0 % (0.0-7.3) H 09/11/17 03:40 Eosinophils % (Manual) 0 % (0.0-4.3) 09/11/17 03:40 Basophils % (Manual) 0 % (0.0-1.8) 09/11/17 03:40 Metamyelocytes % 0 % 09/11/17 03:40 Myelocytes % 0 % 09/11/17 03:40 Promyelocytes % 0 % 09/11/17 03:40 Blast Cells % 0 % 09/11/17 03:40 Nucleated RBC % Not Reportable 09/11/17 03:40 Seg Neutrophils # Man 3.8 K/mm3 (1.8-7.7) 09/11/17 03:40 Band Neutrophils # 0.2 K/mm3 09/11/17 03:40 Lymphocytes # (Manual) 1.3 K/mm3 (1.2-5.4) 09/11/17 03:40 Abs React Lymphs (Man) 0.0 K/mm3 09/11/17 03:40 Monocytes # (Manual) 1.1 K/mm3 (0.0-0.8) H 09/11/17 03:40 Eosinophils # (Manual) 0.0 K/mm3 (0.0-0.4) 09/11/17 03:40 Basophils # (Manual) 0.0 K/mm3 (0.0-0.1) 09/11/17 03:40 Metamyelocytes # 0.0 K/mm3 09/11/17 03:40 Myelocytes # 0.0 K/mm3 09/11/17 03:40 Promyelocytes # 0.0 K/mm3 09/11/17 03:40 Blast Cells # 0.0 K/mm3 09/11/17 03:40 WBC Morphology Not Reportable 09/11/17 03:40 Hypersegmented Neuts Not Reportable 09/11/17 03:40 Hyposegmented Neuts Not Reportable 09/11/17 03:40 Hypogranular Neuts Not Reportable 09/11/17 03:40 Smudge Cells Not Reportable 09/11/17 03:40 Toxic Granulation Not Reportable 09/11/17 03:40 Toxic Vacuolation Not Reportable 09/11/17 03:40 Dohle Bodies Not Reportable 09/11/17 03:40 Pelger-Huet Anomaly Not Reportable 09/11/17 03:40 Dev Rods Not Reportable 09/11/17 03:40 Platelet Estimate Consistent w auto 09/11/17 03:40 Clumped Platelets Not Reportable 09/11/17 03:40 Plt Clumps, EDTA Not Reportable 09/11/17 03:40 Large Platelets Not Reportable 09/11/17 03:40 Giant Platelets Not Reportable 09/11/17 03:40 Platelet Satelliting Not Reportable 09/11/17 03:40 Plt Morphology Comment Not Reportable 09/11/17 03:40 RBC Morphology Not Reportable 09/11/17 03:40 Dimorphic RBCs Not Reportable 09/11/17 03:40 Polychromasia Not Reportable 09/11/17 03:40 Hypochromasia Not Reportable 09/11/17 03:40 Poikilocytosis Not Reportable 09/11/17 03:40 Anisocytosis 1+ 09/11/17 03:40 Microcytosis Not Reportable 09/11/17 03:40 Macrocytosis Not Reportable 09/11/17 03:40 Spherocytes Not Reportable 09/11/17 03:40 Pappenheimer Bodies Not Reportable 09/11/17 03:40 Sickle Cells Not Reportable 09/11/17 03:40 Target Cells Not Reportable 09/11/17 03:40 Tear Drop Cells Not Reportable 09/11/17 03:40 Ovalocytes Not Reportable 09/11/17 03:40 Helmet Cells Not Reportable 09/11/17 03:40 [place] Bodies Not Reportable 09/11/17 03:40 [place] Rings Not Reportable 09/11/17 03:40 [place] Cells Not Reportable 09/11/17 03:40 Bite Cells Not Reportable 09/11/17 03:40 Crenated Cell Not Reportable 09/11/17 03:40 Elliptocytes Not Reportable 09/11/17 03:40 Acanthocytes (Spur) Not Reportable 09/11/17 03:40 Rouleaux Not Reportable 09/11/17 03:40 Hemoglobin C Crystals Not Reportable 09/11/17 03:40 Schistocytes Not Reportable 09/11/17 03:40 Malaria parasites Not Reportable 09/11/17 03:40 Max Bodies Not Reportable 09/11/17 03:40 Hem Pathologist Commnt No 09/11/17 03:40 PT 15.0 Sec. (12.2-14.9) H 09/10/17 05:24 INR 1.12 (0.87-1.13) 09/10/17 05:24 VBG pH 7.355 (7.320-7.420) 09/10/17 05:24 Sodium 139 mmol/L (137-145) 09/11/17 03:40 Potassium 4.1 mmol/L (3.6-5.0) 09/11/17 03:40 Chloride 101.4 mmol/L (98-107) 09/11/17 03:40 Carbon Dioxide 20 mmol/L (22-30) L 09/11/17 03:40 Anion Gap 22 mmol/L 09/11/17 03:40 BUN 9 mg/dL (9-20) 09/11/17 03:40 Creatinine 1.0 mg/dL (0.8-1.5) 09/11/17 03:40 Estimated GFR > 60 ml/min 09/11/17 03:40 BUN/Creatinine Ratio 9 % 09/11/17 03:40 Glucose 71 mg/dL (75-100) L 09/11/17 03:40 Lactic Acid 1.80 mmol/L (0.7-2.0) 09/10/17 08:44 Calcium 9.6 mg/dL (8.4-10.2) 09/11/17 03:40 Total Bilirubin 0.30 mg/dL (0.1-1.2) 09/10/17 05:24 AST 49 units/L (5-40) H 09/10/17 05:24 ALT 49 units/L (7-56) 09/10/17 05:24 Alkaline Phosphatase 89 units/L (35-129) 09/10/17 05:24 Total Protein 7.1 g/dL (6.3-8.2) 09/10/17 05:24 Albumin 3.8 g/dL (3.9-5) L 09/10/17 05:24 Albumin/Globulin Ratio 1.2 % 09/10/17 05:24 Urine Color Yellow (Yellow) 09/10/17 05:28 Urine Turbidity Clear (Clear) 09/10/17 05:28 Urine pH 5.0 (5.0-7.0) 09/10/17 05:28 Ur Specific [place] 1.021 (1.003-1.030) 09/10/17 05:28 Urine Protein 30 mg/dl mg/dL (Negative) 09/10/17 05:28 Urine Glucose (UA) Neg mg/dL (Negative) 09/10/17 05:28 Urine Ketones 20 mg/dL (Negative) 09/10/17 05:28 Urine Blood Neg (Negative) 09/10/17 05:28 Urine Nitrite Neg (Negative) 09/10/17 05:28 Urine Bilirubin Neg (Negative) 09/10/17 05:28 Urine Urobilinogen 2.0 mg/dL (<2.0) 09/10/17 05:28 Ur Leukocyte Esterase Neg (Negative) 09/10/17 05:28 Urine WBC (Auto) 1.0 /HPF (0.0-6.0) 09/10/17 05:28 Urine RBC (Auto) 2.0 /HPF (0.0-6.0) 09/10/17 05:28 Urine Bacteria (Auto) 1+ /HPF (Negative) 09/10/17 05:28 Urine Mucus Few /HPF 09/10/17 05:28
[2017-09-11] MEDS ORDERED: APRESOLINE IV PRN (11:30)
--- NOTE | 2017-09-11 12:59 | Consultation ---
History of Present Illness - Reason for Consult Consult date: 09/11/17 bilateral leg cellulitis Requesting physician: ROXANNE SIMENTAL - History of Present Illness 67 years old male with history of asthma, dementia, GERD, hypertension, and malignant neoplasm of the brain admitted on 09/10/17 due to altered mental status and fever for [facility]. Patient has DNR ordered on chart since 2014. History is limited in view of altered mental status. Upon admission to the emergency room, initial temperature was 104.9, heart rate 114, respiration 32, O2 sat 94%, blood pressure 164/83. Initial white count 10.1. Hemoglobin 15. Creatinine 1.1. Lactic acid 2.1. Urinalysis was negative. CT of the head did show a large area of edema in the right frontal lobe and medial left frontal lobe 6.6 x 5.7 cm, previous craniotomy changes. Chest x-ray negative. Microbiology: Blood cultures: 09/10 ngtd Urine cultures: Current Antimicrobials: Zosyn 09/10 Vancomycin 09/10 Previous Antimicrobials: Past History Past Medical History: GERD, hypertension ( ), other (malignant neoplasm of the brain and dementia.) Past Surgical History: Other (unable to obtain due to patients mental status ) Social history: denies: smoking Family history: other (unable to obtain due to patients mental status ) Medications and Allergies Allergies Allergy/AdvReac Type Severity Reaction Status Date / Time acetaminophen [From Tylenol] Allergy Unknown Verified 09/10/17 05:27 aspirin Allergy Unknown Verified 09/10/17 05:27 mannitol [From Zometa] Allergy Unknown Verified 09/10/17 05:27 propoxyphene Allergy Unknown Verified 09/10/17 05:27 water for injection,sterile Allergy Unknown Verified 09/10/17 05:27 [From Zometa] zoledronic acid [From Zometa] Allergy Unknown Verified 09/10/17 05:27 Home Medications Medication Instructions Recorded Confirmed Last Taken Type Albuterol Sulfate [Albuterol 0.63% 0.63 mg IH Q4H PRN 09/10/17 09/10/17 Unknown History NEBS] Ascorbic Acid [Vitamin C with Heather 500 mg PO DAILY 09/10/17 09/10/17 Unknown History Hips] Beclomethasone Dipropionate [Qvar] 2 puff IH BID 09/10/17 09/10/17 Unknown History Dexamethasone [Decadron] 4 mg PO QDAY 09/10/17 09/10/17 Unknown History Docusate Sodium [Colace] 200 mg PO BID PRN 09/10/17 09/10/17 Unknown History Ibuprofen [Motrin] 600 mg PO Q8H PRN 09/10/17 09/10/17 Unknown History Ipratropium/Albuterol Sulfate 1 neb IH Q4HR PRN 09/10/17 09/10/17 Unknown History [DUONEB *Not for PRN Use*] Linagliptin [Tradjenta] 5 mg PO QDAY 09/10/17 09/10/17 Unknown History Mag Hydrox/Aluminum Hyd/Simeth 30 ml PO Q4H PRN 09/10/17 09/10/17 Unknown History [Alum-Mag Hydroxide-Simeth Liq] Magnesium Hydroxide [Milk of 30 ml PO Q12H PRN 09/10/17 09/10/17 Unknown History Magnesia] Montelukast [Singulair] 10 mg PO DAILY 09/10/17 09/10/17 Unknown History Omeprazole 20 mg PO QDAY 09/10/17 09/10/17 Unknown History Polyethylene Glycol 1450 17 gm PO DAILY PRN 09/10/17 09/10/17 Unknown History Sennosides/Docusate [Senokot S] 2 tab PO BID PRN 09/10/17 09/10/17 Unknown History Tamsulosin [Flomax] 0.4 mg PO HS 09/10/17 09/10/17 Unknown History Thiamine [Vitamin B-1] 100 mg PO QDAY 09/10/17 09/10/17 Unknown History Zolpidem [Ambien] 5 mg PO QHS PRN 09/10/17 09/10/17 Unknown History guaiFENesin [Guaifenesin] 30 ml PO Q4H PRN 09/10/17 09/10/17 Unknown History levETIRAcetam [Levetiracetam] 500 mg PO BID 09/10/17 09/10/17 Unknown History Active Meds: Active Medications Acetaminophen (Tylenol) 650 mg MO Q6H PRN PRN Reason: Pain, Mild (1-3) Last Admin: 09/10/17 14:58 Dose: 650 mg Al Hydrox/Mg Hydrox/Simethicone (Alum-Mag Hydrox-Simeth [id number]/5ml) 30 ml PO Q4H PRN PRN Reason: Indigestion Albuterol (Proventil) 2.5 mg IH Q4HRT PRN PRN Reason: Shortness Of Breath Ascorbic Acid (Vitamin C) 500 mg PO DAILY [facility] Last Admin: 09/11/17 10:00 Dose: Not Given Bisacodyl (Dulcolax) 10 mg MO QDAY PRN PRN Reason: Constipation unrelieved by MOM Dexamethasone (Decadron) 4 mg PO QDAY [facility] Last Admin: 09/11/17 10:00 Dose: Not Given Docusate Sodium (Colace) 200 mg PO BID PRN PRN Reason: Constipation Enoxaparin Sodium (Lovenox) 40 mg SUB-Q QDAY [facility] Last Admin: 09/11/17 09:53 Dose: 40 mg Guaifenesin (Robitussin) 400 mg PO Q4H PRN PRN Reason: Cough Hydralazine HCl (Apresoline) 10 mg IV Q4H PRN PRN Reason: Blood Pressure Sodium Chloride (Nacl 0.9% 1000 Ml) 1,000 mls @ 100 mls/hr IV DIRECT [facility] Last Admin: 09/10/17 18:38 Dose: 100 mls/hr Piperacillin Sod/Tazobactam Sod (Zosyn/Ns 4.5gm/100ml) 4.5 gm in 100 mls @ 200 mls/hr IV Q6HR RUCHI PRN Reason: Protocol Last Admin: 09/11/17 05:06 Dose: 200 mls/hr Vancomycin HCl 1,250 mg/ (Sodium Chloride) 262.5 mls @ 166.667 mls/hr IV Q12HR [facility] Last Admin: 09/11/17 11:15 Dose: 166.667 mls/hr Ibuprofen (Motrin) 600 mg PO Q8H PRN PRN Reason: Pain Levetiracetam (Keppra) 500 mg PO BID [facility] Last Admin: 09/11/17 10:00 Dose: Not Given Magnesium Hydroxide (Milk Of Magnesia) 30 ml PO Q12H PRN PRN Reason: Constipation Miscellaneous Medication (Beclomethasone Dipropionate [Qvar]) 2 puff IH BID [facility] Montelukast Sodium (Singulair) 10 mg PO DAILY [facility] Last Admin: 09/11/17 10:00 Dose: Not Given Morphine Sulfate (Morphine) 2 mg IV Q4H PRN PRN Reason: Pain, Moderate (4-6) Pantoprazole Sodium (Protonix) 20 mg PO QDAY [facility] Last Admin: 09/11/17 10:00 Dose: Not Given Polyethylene Glycol (Miralax 3350) 17 gm PO QDAY PRN PRN Reason: Constipation Senna/Docusate Sodium (Senokot S) 2 tab PO BID PRN PRN Reason: Constipation Tamsulosin HCl (Flomax) 0.4 mg PO HS [facility] Last Admin: 09/10/17 22:04 Dose: 0.4 mg Thiamine HCl (Vitamin B-1) 100 mg PO QDAY [facility] Last Admin: 09/11/17 10:00 Dose: Not Given Tramadol HCl (Ultram) 50 mg PO Q4H PRN PRN Reason: Fever Vancomycin HCl (Vancomycin Pharmacy To Dose) 1 each IV PKCONSULT [facility] PRN Reason: Protocol Zolpidem Tartrate (Ambien) 5 mg PO QHS PRN PRN Reason: Insomnia Review of Systems ROS unobtainable: due to mental status Physical Examination - Physical Exam Narrative exam: General appearance: slightly somnolent in NAD, conversant Eyes: anicteric sclerae, moist conjunctivae; no lid-lag; PERRLA HENT: Atraumatic; oropharynx clear Neck: Trachea midline; supple, no thyromegaly or lymphadenopathy Lungs: CTA, with normal respiratory effort and no intercostal retractions CV: RRR, no murmurs Abdomen: Soft, non-tender; no masses or hepatosplenomegaly Extremities: Mio calves erythema and edema Skin: facial erythematous scaly plaques Psych: somnolent. Neuro: Moving all extermities Lines: No CVL / PICC - Constitutional Vitals: Vital Signs Temp Pulse Resp BP Pulse Ox 98.9 F 104 H 24 169/88 93 09/11/17 07:47 09/11/17 07:47 09/11/17 08:53 09/11/17 07:47 09/11/17 07:47 Temperature -Last 24 Hours Temperature 98.9 F Temperature 97.9 F Temperature 98.2 F Temperature 102.7 F Results - Labs CBC & Chem 7: 09/11/17 03:40 09/11/17 03:40 Labs: Abnormal lab results 09/11/17 09/11/17 Range/Units 03:40 03:40 Monocytes % (Manual) 17.0 H (0.0-7.3) % Monocytes # (Manual) 1.1 H (0.0-0.8) K/mm3 Carbon Dioxide 20 L (22-30) mmol/L Glucose 71 L (75-100) mg/dL Assessment and Plan Assessment: 1) Sepsis: Present on admission, manifested by fever, tachycardia, increased lactate. Etiology most likely bilateral leg cellulitis +/- brain infection. 2) Bilateral legs cellulitis 3) AMS ? CT of the head did show a large area of edema in the right frontal lobe and medial left frontal lobe 6.6 x 5.7 cm, previous craniotomy changes. 4) Brain tumor s/p craniotomy Plan: -neurosurgical eval in view of high fever out of proportion with physical exam findings-consider transferring higher level of care. -follow-up blood cultures- -obtain C-reactive protein (CRP) -check influenza antigen PCR in nasopharinx -continue zosyn and vancomycin for now -legs elevation I will be off until Sep 17, but available over the phone, please call me for questions. Thank you RUTH Simental for your consultation, will follow up with you. Nancy Parikh MD Infectious Diseases Specialist [facility] M [phone] O [phone]
[2017-09-11] MEDS: TYLENOL PR PRN (13:14)
[2017-09-12] MEDS: KEPPRA PO SCH ×2 (00:03→09:35)
[2017-09-12] MEDS: VANCOMYCIN 1,250 MG in NACL 0.9% 250ML 250 ML IV SCH ×2 (00:03→09:34)
[2017-09-12] MEDS: FLOMAX PO SCH (00:03)
[2017-09-12] MEDS: ZOSYN/NS 4.5GM/100ML 4.5 GM/100 ML VIAL IV SCH ×3 (01:19→12:58)
[2017-09-12 06:11] LABS: Basophils # (Auto) 0.1 K/mm3 (0.0-0.1); Basophils % (Auto) 0.8 % (0.0-1.8); Eosinophils % (Auto) 0.2 % (0.0-4.3); Hemoglobin 14.5 gm/dl (11.8-15.2); Lymphocytes # (Auto) 1.7 K/mm3 (1.2-5.4); Lymphocytes % (Auto) 23.9 % (13.4-35.0); Mean Corpuscular HGB Conc 34 % (32-34); Mean Corpuscular Hemoglobin 30 pg (28-32); Mean Corpuscular Volume 88 fl (84-94); Monocytes # (Auto) 0.9 K/mm3 (0.0-0.8); Monocytes % (Auto) 12.9 % (0.0-7.3); Platelet Count 157 K/mm3 (140-440); Red Blood Count 4.88 M/mm3 (3.65-5.03); Red Cell Distribution Width 14.3 % (13.2-15.2)
[2017-09-12 06:19] LABS: BUN/Creatinine Ratio 9; Blood Urea Nitrogen 9 mg/dL (9-20); Calcium 9.9 mg/dL (8.4-10.2); Hemolysis Index 14
[2017-09-12] MEDS: NACL 0.9% 1000 ML 1,000 ML IV SCH (06:58)
[2017-09-12 08:54] VITALS: BP 123/71
[2017-09-12] MEDS: PROTONIX PO SCH (09:34)
[2017-09-12] MEDS: LOVENOX SUB-Q SCH (09:34)
[2017-09-12] MEDS: SINGULAIR PO SCH (09:35)
[2017-09-12] MEDS: VITAMIN C PO SCH (09:35)
[2017-09-12] MEDS: VITAMIN B-1 PO SCH (09:35)
[2017-09-12] MEDS: DECADRON PO SCH (09:35)
--- NOTE | 2017-09-12 10:30 | Discharge Summary ---
Providers - Providers Date of Admission: 09/10/17 08:18 Date of discharge: 09/12/17 Attending physician: ALEXANDR RIDER 09/10/17 08:24 Speech Therapy Evaluation and Treat [CONS] Routine Reason For Exam: Unable to swallow 09/10/17 14:41 Consult to Physician [CONS] Routine Consulting Provider: PRICILA BOYER Reason For Exam: Bilateral LE cellulitis Place consult to:: dr. rose Notified:: yes Phone number called:: [phone] Was contact made?: Yes If yes, spoke with:: dr. rose Time called:: 15:02 Comment:: randa 09/10/17 14:43 Consult to Dietitian/Nutrition [CONS] Routine Physician Instructions: Reason For Exam: Reason for Consult: Malnutrition Primary care physician: URSZULA KIDD Hospitalization Reason for admission: fever Condition: Stable Hospital course: 67 years old male with history of asthma, dementia, GERD, hypertension, and malignant neoplasm of the brain admitted on 09/10/17 due to altered mental status and [facility] Patient has DNR ordered on chart since 2014. The patient also has been under hospice care at [facility]. Upon admission to the emergency room, initial temperature was 104.9 , heart rate 114, respiration 32, O2 sat 94%, blood pressure 164/83. Initial white count 10.1. Hemoglobin 15. Creatinine 1.1. Lactic acid 2.1. Urinalysis was negative. CT of the head did show a large area of edema in the right frontal lobe and medial left frontal lobe 6.6 x 5.7 cm, previous craniotomy changes. Chest x-ray negative. The family wanted the patient admitted to treat any diagnoses. Separate from the neoplasm of the brain , such as infection. He was admitted with diagnosis of bilateral lower extremity cellulitis and sepsis. Patient was treated with IV antibiotics with significant improvement in the lower extremity cellulitis. Patient continued to have low-grade fever which is felt to be neuro-mediated from the malignant neoplasm of the brain. Patient's blood culture and urine cultures were found to be negative. Patient's mental status returned to baseline. Patient is felt to have received maximal hospital benefit. Dedicated discharge time 32 minutes. Disposition: [id number] [facility] Time spent for discharge: 32 - Discharge Diagnoses (1) Bilateral cellulitis of lower leg Status: Acute (2) Brain neoplasm Status: Acute (3) Dementia Status: Acute (4) HTN (hypertension) Status: Acute (5) Sepsis Status: Acute Core Measure Documentation - Palliative Care Palliative Care/ Comfort Measures: Hospice Care - Core Measures Any of the following diagnoses?: none Exam - Constitutional Vitals: Temp Pulse Resp BP Pulse Ox 98.6 F 98 H 20 123/71 92 09/12/17 08:03 09/11/17 19:41 09/12/17 08:03 09/12/17 08:03 09/11/17 19:41 General appearance: Present: no acute distress, well-nourished - EENT Eyes: Present: PERRL ENT: hearing intact, clear oral mucosa - Neck Neck: Present: supple, normal ROM - Respiratory Respiratory effort: normal Respiratory: bilateral: CTA - Cardiovascular Heart Sounds: Present: S1 & S2. Absent: rub, click - Extremities Extremities: pulses symmetrical, No edema Peripheral Pulses: within normal limits - Abdominal General gastrointestinal: Present: soft, non-tender, non-distended, normal bowel sounds Male genitourinary: Present: normal - Integumentary Integumentary: Present: clear, warm, dry - Musculoskeletal Musculoskeletal: gait normal, strength equal bilaterally - Psychiatric Psychiatric: appropriate mood/affect, intact judgment & insight - Neurologic Neurologic: CNII-XII intact, moves all extremities Plan Activity: advance as tolerated Weight Bearing Status: Weight Bear as Tolerated Diet: regular Prescriptions: Levofloxacin [Levaquin] 750 mg PO QDAY #10 tablet
--- NOTE | 2017-09-12 14:05 | Query-Altered Level of Consc. ---
Kyra Gonzalez__Mary Jane_Boubacar Date:__09/12/2017 Mining Manager/CDS:___Apoorva Phone#:____[phone] Exercise your independent professional judgment when responding to this query. Questions asked do not imply a particular answer is desired or expected. We greatly appreciate your clarification on this issue. Clinical Documentation States: 67 Year old male was admitted on 09/10/2017 with altered mental status and fever. The ID (Dr. Price) consult note on 09/11/2017 states "3) AMS." Please provide an appropriate diagnosis clarifying the Etiology and Acuity of this clinical scenario: [ ] Metabolic Encephalopathy [ ] Toxic Encephalopathy [ x] Toxic - Metabolic Encephalopathy [ ] Septic Encephalopathy with Sepsis [ ] Septic Encephalopathy without Sepsis [ ] Acute Hepatic Encephalopathy [ ] Subacute Hepatic Encephalopathy [ ] Encephalopathy [ ] Other: [ ] Unable To Determine [ ]Comment/Explanation: Present on Admission: [ x] Yes (Y) [ ] Clinically undeterminable (W) [ ] No (N) Please also document response in your Progress Notes and/or Discharge Summary and indicate if the condition was present on admission. MTDD
== END 2017-09-12 14:40 | disposition hospice, inpatient (51) | DRG 871 ==
LOC: ED 05:00 → 2B-ACE 08:18
PROVIDERS: ADMIT Hospitalist; ATTEND Hospitalist
DX: A41.9 Sepsis, unspecified organism (principal); G92 Toxic encephalopathy; L03.116 Cellulitis of left lower limb; E46 Unspecified protein-calorie malnutrition; L03.115 Cellulitis of right lower limb; D49.6 Neoplasm of unspecified behavior of brain; F03.90 Unspecified dementia, unspecified severity, without behavioral disturbance, psychotic disturbance, mood disturbance, and anxiety; J45.909 Unspecified asthma, uncomplicated; K21.9 Gastro-esophageal reflux disease without esophagitis; Z66 Do not resuscitate; F17.200 Nicotine dependence, unspecified, uncomplicated; I10 Essential (primary) hypertension; Z71.6 Tobacco abuse counseling; Z68.34 Body mass index [BMI] 34.0-34.9, adult
CPT/HCPCS: 36415; 70450; 71010; 80048; 80053; 81001; 82140; 82805; 85007; 85025; 85610; 86140; 87040; 87086; 87324; 93005; 93010; 93970; 96365; G8996-GN; G8997-GN; J0360; J1650; J2543; J3370; J7030; J7040; J7050; J8540